=== PATIENT | male | born 1945 | race Caucasian/White ===

== ENCOUNTER 2022-08-08 11:42 | Inpatient (IN) | payer OTHER ==
[2022-08-08 11:56] VITALS: BMI 26.5
[2022-08-08] MEDS ORDERED: SODIUM CHLORIDE 0.9% 500 ML INFUS.BAG IV ONE ×2 (12:27→15:17)
[2022-08-08] MEDS ORDERED: ONDANSETRON 4 MG/2 ML VIAL IVPUSH ONE (12:27)
[2022-08-08] MEDS ORDERED: ONDANSETRON 4 MG/2 ML VIAL ONE (13:04)
[2022-08-08 13:11] LABS: BASO % 0.5 % (0-2.0); EOS % 0.4 % (0-4.5); HEMATOCRIT 37.8 % (35.4-49); HEMOGLOBIN 12.5 GM/dL (11.7-16.9); LYMPH % 12.6 % (8-40); MCH 31.2 pg (25.7-33.7); MCHC 33.1 g/dl (32.0-35.9); MEAN CELL VOLUME 94.5 fl (80-96); MEAN PLT VOLUME 7.9 fl (7.5-11.1); MONO % 11.1 % (3.8-10.2); NEUT % 75.4 % (42.8-82.8); PLATELET COUNT 219 10^3/uL (134-434); RDW 19.8 % (11.9-15.9)
[2022-08-08 13:16] LABS: INR 1.16 (0.83-1.09); PROTHROMBIN TIME (PATIENT) 13.4 SEC (9.7-13.0)
[2022-08-08] MEDS ORDERED: ACETAMINOPHEN 1000 MG/100 ML BAG IVPB ONE ×2 (13:24→18:48)
[2022-08-08 13:27] LABS: CALCIUM 10.4 mg/dL (8.5-10.1)
[2022-08-08 13:28] LABS: ALBUMIN 4.3 g/dl (3.4-5.0); BLOOD UREA NITROGEN 26.2 mg/dL (7-18); MAGNESIUM 2.5 mg/dL (1.8-2.4)
[2022-08-08 13:31] LABS: CREATININE 1.7 mg/dL (0.55-1.3)
[2022-08-08] MEDS ORDERED: ACETAMINOPHEN INJECTION 100 ML IVPB ONE ×2 (13:31→20:23)
[2022-08-08 13:32] LABS: BILIRUBIN,TOTAL 1.3 mg/dL (0.2-1); TOT PROT 8.4 g/dl (6.4-8.2)
[2022-08-08] MEDS ORDERED: POLYETHYLENE GLYCOL (HEALTHYLAX) 3350 17 GM PACKET PO ONE (16:30)
[2022-08-08] MEDS ORDERED: POLYETHYLENE GLYCOL (HEALTHYLAX) 3350 17 GM PACKET ONE (16:39)
[2022-08-08] MEDS ORDERED: ONDANSETRON 4 MG/2 ML VIAL IVPUSH PRN (17:53)
[2022-08-08] MEDS ORDERED: LACTATED RINGERS SOLUTION 1,000 ML/1,000 ML INFUS.BAG IV SCH (18:15)
[2022-08-08 18:56] LABS: EPI CELLS 25 /uL (0-25.1); HYALINE CASTS 2 /uL (0-3.1); URINE APPEARANCE CLOUDY; URINE BACTERIA 14 /uL (0-1359); URINE BILIRUBIN 1+ (NEGATIVE); URINE COLOR DK YELLOW; URINE GLUCOSE (UA) TRACE (NEGATIVE); URINE KETONE TRACE (NEGATIVE); URINE LEUK ESTERASE 2+ (NEGATIVE); URINE NITRITE NEGATIVE (NEGATIVE); URINE PROTEIN 1+ (NEGATIVE); URINE WBC 470 /uL (0-25.8)
[2022-08-08] MEDS ORDERED: CEFTRIAXONE 1,000 MG in DEXTROSE 5%-WATER - 50 ML IVPB ONE (19:29)
[2022-08-08] MEDS ORDERED: CEFTRIAXONE 1 GM/50 ML BAG ONE (21:02)
[2022-08-08] MEDS: CEFTRIAXONE 1 GM in DEXTROSE 5%-WATER - 50 ML IVPB SCH (21:06)
[2022-08-08 21:28] LABS: URINE RBC 171.8 /uL (0-23.9)
[2022-08-08] MEDS: POLYETHYLENE GLYCOL (HEALTHYLAX) 3350 17 GM PACKET PO SCH (22:24)
[2022-08-09] MEDS ORDERED: ACETAMINOPHEN 1000 MG/100 ML BAG IVPB PRN (01:11)
[2022-08-09 06:38] LABS: HEMOGLOBIN 11.3 GM/dL (11.7-16.9); MCH 31.2 pg (25.7-33.7); MCHC 33.1 g/dl (32.0-35.9); MEAN CELL VOLUME 94.1 fl (80-96); PLATELET COUNT 187 10^3/uL (134-434); RBC 3.61 M/mm3 (4.00-5.60); WHITE BLOOD COUNT 21.2 K/mm3 (4.0-10.0)
[2022-08-09 07:03] LABS: BLOOD UREA NITROGEN 27.3 mg/dL (7-18); MAGNESIUM 1.9 mg/dL (1.8-2.4)
[2022-08-09 07:05] LABS: CREATININE 1.4 mg/dL (0.55-1.3)
[2022-08-09 07:06] LABS: PHOSPHOROUS 3.4 mg/dL (2.5-4.9)
[2022-08-09 07:07] LABS: BILIRUBIN,TOTAL 1.1 mg/dL (0.2-1); TOT PROT 6.5 g/dl (6.4-8.2)
[2022-08-09 07:54] LABS: ALBUMIN 3.3 g/dl (3.4-5.0); CALCIUM 8.6 mg/dL (8.5-10.1)
[2022-08-09] MEDS ORDERED: LACTATED RINGERS SOLUTION 1000 ML INFUS.BAG IV ONE ×3 (08:20→18:37)
[2022-08-09 09:02] LABS: ANISOCYTOSIS 1+; MACROCYTOSIS 1+
[2022-08-09 09:21] LABS: ARTERIAL BLD GAS O2 SATURATION 95.3 % (95-98); ARTERIAL BLOOD GAS BASE EXCESS -0.9 mmol/L (-2-2); ARTERIAL BLOOD GAS PO2 71.4 mmHg (80-100); ARTERIAL BLOOD GAS pH 7.456 (7.350-7.450)
[2022-08-09 09:22] LABS: ALLENS TEST POSITIVE
[2022-08-09] MEDS: POLYETHYLENE GLYCOL (HEALTHYLAX) 3350 17 GM PACKET PO SCH ×2 (10:40→21:35)
[2022-08-09] MEDS: ENOXAPARIN NA (PORCINE) 40 MG/0.4 ML DISP.SYRIN SQ SCH (10:40)
[2022-08-09] MEDS: CEFTRIAXONE 1 GM in DEXTROSE 5%-WATER - 50 ML IVPB SCH (10:40)
[2022-08-09] MEDS ORDERED: ACETAMINOPHEN 325 MG TABLET (FP) PO PRN (13:19)
[2022-08-09 14:09] LABS: CALCIUM 8.2 mg/dL (8.5-10.1)
[2022-08-09 14:11] LABS: BLOOD UREA NITROGEN 22.1 mg/dL (7-18)
[2022-08-09 14:13] LABS: CREATININE 1.3 mg/dL (0.55-1.3)
[2022-08-09] MEDS: LACTATED RINGERS SOLUTION 1,000 ML/1,000 ML INFUS.BAG IV SCH (16:29)
[2022-08-09 16:43] LABS: LACTIC ACID 3.6 mmol/L (0.4-2.0)
[2022-08-09] MEDS ORDERED: SENNOSIDES 8.6MG TABLET (FP) PO SCH (22:00)
[2022-08-10 07:04] LABS: HEMATOCRIT 28.8 % (35.4-49); HEMOGLOBIN 9.6 GM/dL (11.7-16.9); MCH 31.3 pg (25.7-33.7); MCHC 33.5 g/dl (32.0-35.9); MEAN CELL VOLUME 93.4 fl (80-96); MEAN PLT VOLUME 8.3 fl (7.5-11.1); PLATELET COUNT 154 10^3/uL (134-434); RBC 3.08 M/mm3 (4.00-5.60); RDW 20.3 % (11.9-15.9); WHITE BLOOD COUNT 17.8 K/mm3 (4.0-10.0)
[2022-08-10 07:23] LABS: ALBUMIN 2.6 g/dl (3.4-5.0); BLOOD UREA NITROGEN 20.2 mg/dL (7-18); CALCIUM 8.3 mg/dL (8.5-10.1)
[2022-08-10 07:25] LABS: CREATININE 1.1 mg/dL (0.55-1.3)
[2022-08-10 07:28] LABS: BILIRUBIN,TOTAL 0.9 mg/dL (0.2-1); TOT PROT 5.7 g/dl (6.4-8.2)
[2022-08-10] MEDS: POLYETHYLENE GLYCOL (HEALTHYLAX) 3350 17 GM PACKET PO SCH ×3 (09:18→21:31)
[2022-08-10] MEDS: CEFTRIAXONE 1 GM in DEXTROSE 5%-WATER - 50 ML IVPB SCH (09:19)
[2022-08-10] MEDS: ENOXAPARIN NA (PORCINE) 40 MG/0.4 ML DISP.SYRIN SQ SCH (09:19)
[2022-08-10] MEDS ORDERED: SENNOSIDES 8.6MG TABLET (FP) PO SCH (12:48)
[2022-08-10] MEDS: LACTATED RINGERS SOLUTION 1,000 ML/1,000 ML INFUS.BAG IV SCH (13:00)
[2022-08-11] MEDS: POLYETHYLENE GLYCOL (HEALTHYLAX) 3350 17 GM PACKET PO SCH ×3 (05:59→22:08)
[2022-08-11 08:35] LABS: BASO % 0.2 % (0-2.0); EOS % 0.3 % (0-4.5); HEMATOCRIT 28.1 % (35.4-49); HEMOGLOBIN 9.8 GM/dL (11.7-16.9); LYMPH % 13.4 % (8-40); MCH 32.4 pg (25.7-33.7); MCHC 34.7 g/dl (32.0-35.9); MEAN CELL VOLUME 93.4 fl (80-96); MEAN PLT VOLUME 7.9 fl (7.5-11.1); MONO % 8.9 % (3.8-10.2); NEUT % 77.2 % (42.8-82.8); PLATELET COUNT 155 10^3/uL (134-434); RBC 3.01 M/mm3 (4.00-5.60); RDW 19.2 % (11.9-15.9); WHITE BLOOD COUNT 13.4 K/mm3 (4.0-10.0)
[2022-08-11] MEDS: LACTATED RINGERS SOLUTION 1,000 ML/1,000 ML INFUS.BAG IV SCH ×2 (08:46→14:25)
[2022-08-11 08:53] LABS: BLOOD UREA NITROGEN 19.9 mg/dL (7-18); CALCIUM 8.6 mg/dL (8.5-10.1)
[2022-08-11] MEDS: ENOXAPARIN NA (PORCINE) 40 MG/0.4 ML DISP.SYRIN SQ SCH (09:44)
[2022-08-11] MEDS: CEFTRIAXONE 1 GM in DEXTROSE 5%-WATER - 50 ML IVPB SCH (09:44)
[2022-08-11] MEDS ORDERED: ONDANSETRON 4 MG/2 ML VIAL IVPUSH PRN (18:44)
[2022-08-11] MEDS ORDERED: ACETAMINOPHEN 325 MG TABLET (FP) PO PRN (18:44)
[2022-08-11] MEDS ORDERED: SENNOSIDES 8.6MG TABLET (FP) PO SCH (22:00)
[2022-08-12] MEDS: POLYETHYLENE GLYCOL (HEALTHYLAX) 3350 17 GM PACKET PO SCH ×2 (06:20→15:31)
[2022-08-12 09:16] LABS: BASO % 0.3 % (0-2.0); HEMATOCRIT 28.5 % (35.4-49); HEMOGLOBIN 9.8 GM/dL (11.7-16.9); LYMPH % 17.7 % (8-40); MCHC 34.4 g/dl (32.0-35.9); MEAN CELL VOLUME 92.9 fl (80-96); MEAN PLT VOLUME 8.2 fl (7.5-11.1); MONO % 9.6 % (3.8-10.2); NEUT % 71.4 % (42.8-82.8); PLATELET COUNT 183 10^3/uL (134-434); RBC 3.06 M/mm3 (4.00-5.60); RDW 18.9 % (11.9-15.9); WHITE BLOOD COUNT 8.9 K/mm3 (4.0-10.0)
[2022-08-12 09:54] LABS: BLOOD UREA NITROGEN 18.2 mg/dL (7-18); CALCIUM 8.5 mg/dL (8.5-10.1)
[2022-08-12 09:58] LABS: CREATININE 0.9 mg/dL (0.55-1.3)
[2022-08-12] MEDS: CEFTRIAXONE 1 GM in DEXTROSE 5%-WATER - 50 ML IVPB SCH (10:10)
[2022-08-12] MEDS: ENOXAPARIN NA (PORCINE) 40 MG/0.4 ML DISP.SYRIN SQ SCH (10:10)
[2022-08-12] MEDS: TAMSULOSIN HCL 0.4 MG CAP PO SCH ×2 (10:11→10:19)
[2022-08-12] MEDS: FINASTERIDE 5 MG TABLET (FP) PO SCH ×2 (10:11→10:19)
[2022-08-12] MEDS: QUINAPRIL HCL 20 MG TABLET PO SCH (10:19)
[2022-08-12] MEDS: SENNOSIDES 8.6MG TABLET (FP) PO SCH (21:35)
[2022-08-13 08:33] LABS: HEMATOCRIT 30.4 % (35.4-49); HEMOGLOBIN 10.5 GM/dL (11.7-16.9); MCH 32.2 pg (25.7-33.7); MCHC 34.6 g/dl (32.0-35.9); MEAN PLT VOLUME 7.6 fl (7.5-11.1); PLATELET COUNT 204 10^3/uL (134-434); RBC 3.27 M/mm3 (4.00-5.60); RDW 19.7 % (11.9-15.9); WHITE BLOOD COUNT 9.5 K/mm3 (4.0-10.0)
[2022-08-13 08:55] LABS: ALBUMIN 2.7 g/dl (3.4-5.0); BLOOD UREA NITROGEN 16.5 mg/dL (7-18); CALCIUM 8.3 mg/dL (8.5-10.1); MAGNESIUM 2.4 mg/dL (1.8-2.4)
[2022-08-13 08:59] LABS: BILIRUBIN,TOTAL 0.5 mg/dL (0.2-1); TOT PROT 6.2 g/dl (6.4-8.2)
[2022-08-13] MEDS: ENOXAPARIN NA (PORCINE) 40 MG/0.4 ML DISP.SYRIN SQ SCH (09:54)
[2022-08-13] MEDS: CEFTRIAXONE 1 GM in DEXTROSE 5%-WATER - 50 ML IVPB SCH (09:54)
[2022-08-13] MEDS: TAMSULOSIN HCL 0.4 MG CAP PO SCH (09:55)
[2022-08-13] MEDS: POLYETHYLENE GLYCOL (HEALTHYLAX) 3350 17 GM PACKET PO SCH ×2 (09:55→10:08)
[2022-08-13] MEDS: FINASTERIDE 5 MG TABLET (FP) PO SCH (09:56)
[2022-08-13] MEDS: QUINAPRIL HCL 20 MG TABLET PO SCH (09:58)
[2022-08-13] MEDS: SENNOSIDES 8.6MG TABLET (FP) PO SCH (21:16)
[2022-08-14 07:26] VITALS: RESP 18
[2022-08-14 09:21] LABS: HEMATOCRIT 29.3 % (35.4-49); HEMOGLOBIN 10.2 GM/dL (11.7-16.9); MCH 31.5 pg (25.7-33.7); MCHC 34.6 g/dl (32.0-35.9); PLATELET COUNT 220 10^3/uL (134-434); RBC 3.22 M/mm3 (4.00-5.60); WHITE BLOOD COUNT 8.8 K/mm3 (4.0-10.0)
[2022-08-14 09:48] LABS: ALBUMIN 2.7 g/dl (3.4-5.0)
[2022-08-14 09:49] LABS: CALCIUM 8.6 mg/dL (8.5-10.1)
[2022-08-14 09:51] LABS: CREATININE 0.9 mg/dL (0.55-1.3)
[2022-08-14 09:52] LABS: BILIRUBIN,TOTAL 0.5 mg/dL (0.2-1)
[2022-08-14 09:53] LABS: TOT PROT 6.1 g/dl (6.4-8.2)
[2022-08-14] MEDS: CEFTRIAXONE 1 GM in DEXTROSE 5%-WATER - 50 ML IVPB SCH (09:59)
[2022-08-14] MEDS: TAMSULOSIN HCL 0.4 MG CAP PO SCH (10:00)
[2022-08-14] MEDS: ENOXAPARIN NA (PORCINE) 40 MG/0.4 ML DISP.SYRIN SQ SCH (10:00)
[2022-08-14] MEDS: POLYETHYLENE GLYCOL (HEALTHYLAX) 3350 17 GM PACKET PO SCH (10:00)
[2022-08-14] MEDS: FINASTERIDE 5 MG TABLET (FP) PO SCH (10:00)
[2022-08-14] MEDS: QUINAPRIL HCL 20 MG TABLET PO SCH (10:02)
[2022-08-14 15:05] VITALS: BP 147/76; PULSE 87; TEMP 98.9
== END 2022-08-14 15:50 | disposition home or self-care (01) | DRG 872 ==
LOC: JER 11:42 → JERBED 14:18 → INTOOBSV 14:18 → UNDOADMOB 14:18 → JERBED 18:01 → UNDOADMOB 18:21 → J4S 21:32 → OBSVTOIN 08-09 13:00 → J7W 08-11 18:34
PROVIDERS: ADMIT Internal Medicine; ATTEND Internal Medicine
DX: A41.89 Other specified sepsis (principal); E87.20 Acidosis, unspecified; K57.32 Diverticulitis of large intestine without perforation or abscess without bleeding; K59.00 Constipation, unspecified; I10 Essential (primary) hypertension; N40.0 Benign prostatic hyperplasia without lower urinary tract symptoms; K57.30 Diverticulosis of large intestine without perforation or abscess without bleeding; R50.9 Fever, unspecified; D72.829 Elevated white blood cell count, unspecified; D64.9 Anemia, unspecified; K80.80 Other cholelithiasis without obstruction; K76.0 Fatty (change of) liver, not elsewhere classified; K52.89 Other specified noninfective gastroenteritis and colitis; R11.2 Nausea with vomiting, unspecified
CPT/HCPCS: 0241U-QW; 36415; 36600; 70450-TC; 71045-TC-FY; 74176-TC; 76705-TC; 76857; 80048; 80053; 81003; 82272; 82436; 82570; 82728; 82803; 83540; 83550; 83605; 83690; 83735; 84100; 84133; 84300; 84443; 84484; 85025; 85027; 85045; 85610; 85651; 85730; 86140; 87040; 87086; 93005; 93010; 93306-TC; 93880-TC; 97116-GP; 99285-25; G0378